=== PATIENT | female | born 1945 | race Caucasian/White ===

== ENCOUNTER 2019-03-30 05:49 | Outpatient (CLI) | payer MEDICARE ==
[~2019-03-30] VITALS: Ht 157.5 cm; Wt 68.0 kg
[2019-03-30] MEDS ORDERED: MV-M1TAB57 PO (16:43)
[2019-03-30] MEDS ORDERED: OMEP20CA12 PO (16:43)
[2019-03-30] MEDS ORDERED: OXYB5TAB9 PO (16:43)
[2019-03-30] MEDS ORDERED: CALC-654 PO (16:43)
[2019-03-30] MEDS ORDERED: SPIR50TA4 PO (16:43)
[2019-03-30] MEDS ORDERED: OMEG100032 PO (16:43)
[2019-03-30] MEDS ORDERED: SIMV20TA3 PO (16:43)
== END 2019-03-30 16:46 | disposition home or self-care (01) ==
LOC: PREOP 05:49
PROVIDERS: ATTEND Specialist
DX: Z01.818 Encounter for other preprocedural examination (principal)

== ENCOUNTER 2019-04-01 10:43 | Day surgery (SDC) | payer MEDICARE ==
[~2019-04-01] VITALS: Ht 157.5 cm; Wt 68.0 kg
[~2019-04-01 10:43] MED LIST: CALC-654 PO; MV-M1TAB57 PO; OMEG100032 PO; OMEP20CA12 PO; OXYB5TAB9 PO; SIMV20TA3 PO; SPIR50TA4 PO
[2019-04-01] MEDS ORDERED: POVIDONE (BETADINE) OPHTH SOLN 5% 30 ML OP ONE (10:45)
[2019-04-01] MEDS ORDERED: TIMOLOL MALEATE 0.5% 5 ML (TIMOPTIC) BTL OU PRN (10:45)
[2019-04-01] MEDS ORDERED: LIDOCAINE PF 1% 2 ML AMP IR PRN (10:45)
[2019-04-01] MEDS ORDERED: MOXIFLOXACIN OPHTH SOLN 5 MG/ML 0.3 ML SYRINGE OP ONE (10:45)
[2019-04-01 10:48] VITALS: BP 116/95
--- NOTE | 2019-04-01 10:48 | Ophthalmologist Pre-Op Note ---
Pre-Operative Progress Note H&P Reviewed The H&P was reviewed, patient examined and no changes noted. Date H&P Reviewed: Apr 01, 2019 Time H&P Reviewed: 10:48 Pre-Op Dx Cataract, Right Eye ASHOK VALDIVIA MD Apr 01, 2019 10:48
[2019-04-01] MEDS: TETRACAINE 0.5% OPHTH SOLN 4 ML BTL (SINGLE DOSE ONLY) OU PRN ×4 (11:02→11:32)
[2019-04-01] MEDS: PHENYLEPHRINE 10% OPHTH (NEO-SYN) 5 ML BTL OU SCH ×3 (11:14→11:32)
[2019-04-01] MEDS: CYCLOPENTOLATE 1% (CYCLOGYL) 2 ML DROPS OP SCH ×3 (11:15→11:32)
[2019-04-01] MEDS ORDERED: MIDAZOLAM 2 MG/2 ML (VERSED) VIAL ONE (11:29)
[2019-04-01] MEDS ORDERED: DEXAMETHASONE 10 MG/ML (DECADRON) 1 ML VIAL ONE (11:39)
--- NOTE | 2019-04-01 11:56 | Ophthalmology Operative Report ---
Cataract removal/placement IOL PREOPERATIVE DIAGNOSIS: Cataract Right Eye POSTOPERATIVE DIAGNOSIS: Cataract Right Eye PROCEDURE: Cataract removal and placement of posterior chamber implant, right eye SURGEON: Wayne Valdivia ANESTHESIA: Topical with sedation COMPLICATIONS: None ESTIMATED BLOOD LOSS: Minimal DESCRIPTION OF PROCEDURE: After proper informed consent was obtained, the patient, a 73 female, was taken to the Operating Room and the right eye was anesthetized with tetracaine. The right eye was then prepped and draped in the usual manner. A wire lid speculum was placed. A paracentesis was made at the left hand position. Preservative free lidocaine was injected into the anterior chamber followed by viscoelastic. A clear corneal incision was made in the temporal position. A capsulorrhexis was preformed and the central nuclear and cortical material were removed. The posterior capsule was polished and Damian 21.0 AU00T0 IOL was placed into the capsular bag. The residual viscoelastic was aspirated and balanced saline solution was injected into the anterior chamber. Moxifloxacin was injected into the anterior chamber. The wound was checked and found to be water tight. The patient tolerated the procedure well without complications. WAYNE VALDIVIA MD Apr 01, 2019 11:56
[2019-04-01] MEDS ORDERED: acetaZOLAMIDE ER 500 MG CAP (DIAMOX SEQUELS) PO ONE (12:00)
[2019-04-01 12:04] VITALS: BP 108/69
--- NOTE | 2019-04-01 12:17 | Anesthesia-General Post-Op ---
MAC Patient Condition Mental Status/LOC: Same as Preop Cardiovascular: Satisfactory Nausea/Vomiting: Absent Respiratory: Satisfactory Pain: Controlled Complications: Absent Post Op Complications Complications None Follow Up Care/Instructions Patient Instructions None needed. Anesthesiology Discharge Order Discharge Order Patient is doing well, no complaints, stable vital signs, no apparent adverse anesthesia problems. No complications reported per nursing. MEGHAN RODGERS CRNA Apr 01, 2019 12:17
== END 2019-04-01 12:04 | disposition home or self-care (01) ==
LOC: SDC 10:43
PROVIDERS: ATTEND Specialist
DX: H25.11 Age-related nuclear cataract, right eye (principal); K21.9 Gastro-esophageal reflux disease without esophagitis; Z79.899 Other long term (current) drug therapy

== ENCOUNTER 2019-06-28 05:40 | Outpatient (CLI) | payer MEDICARE ==
[~2019-06-28] VITALS: Ht 157.5 cm; Wt 68.0 kg
[~2019-06-28 05:40] MED LIST changes: -OMEP20CA12 PO; +OMEP20CA13 PO
== END 2019-06-28 14:59 | disposition home or self-care (01) ==
LOC: PREOP 05:40
PROVIDERS: ATTEND Specialist
DX: Z01.818 Encounter for other preprocedural examination (principal)

== ENCOUNTER 2019-07-01 07:51 | Day surgery (SDC) | payer MEDICARE ==
[~2019-07-01] VITALS: Ht 157.5 cm; Wt 68.0 kg
[2019-07-01] MEDS ORDERED: TROPICAMIDE 1% OPH SOLN (MYDRIACYL) 15 ML BTL OU PRN (08:00)
[2019-07-01] MEDS ORDERED: PHENYLEPHRINE 10% OPHTH (NEO-SYN) 5 ML BTL OU PRN (08:00)
[2019-07-01 08:10] VITALS: BP 129/73
[2019-07-01] MEDS: TETRACAINE 0.5% OPHTH SOLN 4 ML BTL (SINGLE DOSE ONLY) OU PRN ×4 (08:10→08:24)
--- NOTE | 2019-07-01 08:42 | Ophthalmologist Pre-Op Note ---
Pre-Operative Progress Note H&P Reviewed The H&P was reviewed, patient examined and no changes noted. Date H&P Reviewed: Jul 01, 2019 Time H&P Reviewed: 08:42 Pre-Op Dx Secondary Cataract, Right Eye ASHOK VALDIVIA MD Jul 01, 2019 08:42
[2019-07-01 08:50] VITALS: BP 129/73
--- NOTE | 2019-07-01 09:07 | Ophthalmology Operative Report ---
YAG Capsulotomy PREOPERATIVE DIAGNOSIS: Secondary Cataract Right Eye POSTOPERATIVE DIAGNOSIS: Secondary Cataract Right Eye PROCEDURE: YAG Capsulotomy, right eye SURGEON: Wayne Valdivia ANESTHESIA: Topical anesthesia COMPLICATIONS: None ESTIMATED BLOOD LOSS: Minimal DESCRIPTION OF PROCEDURE: After proper informed consent was obtained, the patient's, a 73 female, right eye received one drop of Tropicamide and one drop of Tetracaine. The patient was then placed at the YAG laser and using a power of [ 3.4] millijoules and [ 13] bursts were used to fashion a central capsulotomy. The patient tolerated the procedure well without complications. WAYNE VALDIVIA MD Jul 01, 2019 09:07
== END 2019-07-01 08:50 | disposition home or self-care (01) ==
LOC: SDC 07:51
PROVIDERS: ATTEND Specialist
DX: H26.491 Other secondary cataract, right eye (principal); M19.90 Unspecified osteoarthritis, unspecified site; K21.9 Gastro-esophageal reflux disease without esophagitis; D69.6 Thrombocytopenia, unspecified; Z88.8 Allergy status to other drugs, medicaments and biological substances; Z79.899 Other long term (current) drug therapy; Z83.518 Family history of other specified eye disorder; Z82.49 Family history of ischemic heart disease and other diseases of the circulatory system

== ENCOUNTER 2019-07-27 05:42 | Outpatient (CLI) | payer MEDICARE ==
[2019-07-27] MEDS ORDERED: OMG1KC PO (12:23)
[2019-07-27] MEDS ORDERED: OMEP20TA7 PO (12:23)
[2019-07-27] MEDS ORDERED: CALC-654 PO (12:23)
[2019-07-27] MEDS ORDERED: MV-M1TAB57 PO (12:23)
[2019-07-27] MEDS ORDERED: SIMV20TA3 PO (12:23)
[2019-07-27] MEDS ORDERED: OXYB5TAB9 PO (12:23)
== END 2019-07-27 12:21 | disposition home or self-care (01) ==
LOC: PREOP 05:42
PROVIDERS: ATTEND Specialist
DX: Z01.818 Encounter for other preprocedural examination (principal)

== ENCOUNTER 2019-07-29 08:25 | Day surgery (SDC) | payer MEDICARE ==
[~2019-07-29] VITALS: Ht 157 cm; Wt 70.4 kg
[2019-07-29 08:22] VITALS: BP 137/74
[~2019-07-29 08:25] MED LIST changes: +OMEP20TA7 PO; +OMG1KC PO
[2019-07-29] MEDS: TETRACAINE 0.5% OPHTH SOLN 4 ML BTL (SINGLE DOSE ONLY) OU PRN ×4 (08:44→09:12)
[2019-07-29] MEDS ORDERED: POVIDONE (BETADINE) OPHTH SOLN 5% 30 ML OP ONE (08:45)
[2019-07-29] MEDS ORDERED: LIDOCAINE PF 1% 2 ML AMP IR PRN (08:45)
[2019-07-29] MEDS ORDERED: MOXIFLOXACIN OPHTH SOLN 5 MG/ML 0.3 ML SYRINGE OP ONE (08:45)
[2019-07-29] MEDS ORDERED: TIMOLOL MALEATE 0.5% 5 ML (TIMOPTIC) BTL OU PRN (08:45)
[2019-07-29] MEDS: PHENYLEPHRINE 10% OPHTH (NEO-SYN) 5 ML BTL OU SCH ×3 (08:55→09:12)
[2019-07-29] MEDS: CYCLOPENTOLATE 1% (CYCLOGYL) 2 ML DROPS OP SCH ×3 (08:55→09:12)
--- NOTE | 2019-07-29 09:24 | Ophthalmologist Pre-Op Note ---
Pre-Operative Progress Note H&P Reviewed The H&P was reviewed, patient examined and no changes noted. Date H&P Reviewed: Jul 29, 2019 Time H&P Reviewed: 09:24 Pre-Op Dx Secondary Cataract, Right Eye ASHOK VALDIVIA MD Jul 29, 2019 09:24
[2019-07-29] MEDS ORDERED: MIDAZOLAM 2 MG/2 ML (VERSED) VIAL ONE (09:32)
--- NOTE | 2019-07-29 09:54 | Ophthalmology Operative Report ---
Cataract removal/placement IOL PREOPERATIVE DIAGNOSIS: Cataract Left Eye POSTOPERATIVE DIAGNOSIS: Cataract Left Eye PROCEDURE: Cataract removal and placement of posterior chamber implant, left eye SURGEON: Wayne Valdivia ANESTHESIA: Topical with sedation COMPLICATIONS: None ESTIMATED BLOOD LOSS: Minimal DESCRIPTION OF PROCEDURE: After proper informed consent was obtained, the patient, a 74 female, was taken to the Operating Room and the left eye was anesthetized with tetracaine. The left eye was then prepped and draped in the usual manner. A wire lid speculum was placed. A paracentesis was made at the left hand position. Preservative free lidocaine was injected into the anterior chamber followed by viscoelastic. A clear corneal incision was made in the temporal position. A capsulorrhexis was preformed and the central nuclear and cortical material were removed. The posterior capsule was polished and an Damian 21.0 AU00T0 was placed into the capsular bag. The residual viscoelastic was aspirated and balanced saline solution was injected into the anterior chamber. Moxifloxacin was injected into the anterior chamber. The wound was checked and found to be water tight. The patient tolerated the procedure well without complications. WAYNE VALDIVIA MD Jul 29, 2019 09:54
--- NOTE | 2019-07-29 09:55 | Ophthalmologist Pre-Op Note ---
Pre-Operative Progress Note H&P Reviewed The H&P was reviewed, patient examined and no changes noted. Date H&P Reviewed: Jul 29, 2019 Time H&P Reviewed: 09:29 Pre-Op Dx Cataract, Left Eye ASHOK VALDIVIA MD Jul 29, 2019 09:55
[2019-07-29 10:00] VITALS: BP 108/62
--- NOTE | 2019-07-29 10:12 | Anesthesia-General Post-Op ---
MAC Patient Condition Mental Status/LOC: Same as Preop Cardiovascular: Satisfactory Nausea/Vomiting: Absent Respiratory: Satisfactory Pain: Controlled Complications: Absent Post Op Complications Complications None Follow Up Care/Instructions Patient Instructions None needed. Anesthesiology Discharge Order Discharge Order Patient is doing well, no complaints, stable vital signs, no apparent adverse anesthesia problems. No complications reported per nursing. GERMÁN LONG CRNA Jul 29, 2019 10:12
[2019-07-29] MEDS ORDERED: acetaZOLAMIDE ER 500 MG CAP (DIAMOX SEQUELS) PO ONE (10:30)
== END 2019-07-29 10:00 | disposition home or self-care (01) ==
LOC: SDC 08:25
PROVIDERS: ATTEND Specialist
DX: H25.12 Age-related nuclear cataract, left eye (principal); K21.9 Gastro-esophageal reflux disease without esophagitis; Z83.518 Family history of other specified eye disorder; Z82.49 Family history of ischemic heart disease and other diseases of the circulatory system; Z79.899 Other long term (current) drug therapy; Z83.3 Family history of diabetes mellitus

== ENCOUNTER 2023-08-25 20:23 | Emergency (ER) | payer MEDICARE ==
[~2023-08-25] VITALS: Ht 157.4 cm; Wt 66.2 kg
[~2023-08-25 20:23] MED LIST changes: -OMEP20CA13 PO; +OMEP20CA18 PO; +OMEP20TA56 PO; -OMEP20TA7 PO; +OXYB5TAB13 PO; -OXYB5TAB9 PO; +SIMV20TA26 PO; -SIMV20TA3 PO
[2023-08-25] MEDS ORDERED: NS IV 1000 ML 1,000 ML IV STA (20:42)
[2023-08-25] MEDS ORDERED: ACETAMINOPHEN 500 MG TABLET PO STA (20:42)
[2023-08-25] MEDS ORDERED: ONDANSETRON INJECTION 4 MG/2 ML (SDV) IVP ONE (20:45)
[2023-08-25 20:54] LABS: EOSINOPHILS % (AUTO) 0 % (0-10)
[2023-08-25 20:56] LABS: BASOPHILS % (AUTO) 0 % (0-10); HEMATOCRIT 39 % (35-52); HEMOGLOBIN 12.5 g/dL (11.5-16.0); LYMPHOCYTES # (AUTO) 0.4 10^3/uL (1.0-4.0); LYMPHOCYTES % (AUTO) 10 % (12-44); MEAN CORPUSCULAR HEMOGLOBIN 25 pg (25-34); MEAN CORPUSCULAR HGB CONC 32 g/dL (32-36); MEAN CORPUSCULAR VOLUME 79 fL (80-99); MEAN PLATELET VOLUME 10.8 fL (9.0-12.2); MONOCYTES # (AUTO) 0.1 10^3/uL (0.0-1.0); MONOCYTES % (AUTO) 1 % (0-12); NEUTROPHILS # (AUTO) 3.8 10^3/uL (1.8-7.8); NEUTROPHILS % (AUTO) 88 % (42-75); PLATELET COUNT 88 10^3/uL (130-400); WHITE BLOOD COUNT 4.3 10^3/uL (4.3-11.0)
--- NOTE | 2023-08-25 21:04 | ED General ---
General Chief Complaint: Allergic Reaction Stated Complaint: POSS ALLERGIC REACTION TO SHOTS Nursing Triage Note: PT AMB TO RM 6 WITH CC OF ALLERGIC REACTION FROM THE FLU SHOT AND TDAP THAT SHE RECIEVED FROM [facility] AT 4PM TODAY. PT STATES THAT SHE STARTED TO DEVELOP N/V, KING, BODY ACHES, AND DRY MOUTH AN HOUR AGO. Source of Information: Patient Exam Limitations: No Limitations History of Present Illness Date Seen by Provider: Aug 25, 2023 Time Seen by Provider: 20:37 Initial Comments Here with report of nausea, vomiting, headache, body aches, dry mouth and just overall not feeling well after getting flu shot and Tdap shot today at about 4 PM at [facility]. Patient states that she has never had reactions to flu shots before or the tetanus shot. Fever noted here and she does have chills and overall just feels terrible. She believes that she is having an allergic reaction. No difficulty breathing and no reported diarrhea or chest pain. Has not been ill recently and has no upper respiratory symptoms. She did take her indomethacin 25 mg tablet as well as 1 Tylenol tablet about an hour ago for the symptoms. That has not helped. Timing/Duration: 1-3 Hours Severity: Moderate Modifying Factors: improves with Rest Associated Systoms: No Cough; Nausea/Vomiting; No Shortness of Air Allergies and Home Medications Allergies Coded Allergies: iodine (Verified Allergy, Unknown, Rash, 03/30/19) Patient Home Medication List Home Medication List Reviewed: Yes Calcium Carbonate/Vitamin D3 (Calcium 500 + D Tablet) 1 Each Tablet, 1 EACH PO DAILY, (Reported) Entered as Reported by: RICKEY HELMS on 07/27/19 1223 Mv-Mn/Folic Acid/Calcium/Vit K (Women's 50 Plus Multivit Tab) 1 Each Tablet, 1 EACH PO DAILY, (Reported) Entered as Reported by: RICKEY HELMS on 07/27/19 1223 [place] 3 Polyunsat Fatty Acids (Fish Oil 1,000 mg Capsule) 1,000 Mg Cap, 1,000 MG PO DAILY, (Reported) Entered as Reported by: RICKEY HELMS on 07/27/19 1223 Omeprazole (Omeprazole) 20 Mg Tablet.dr, 20 MG PO DAILY, (Reported) Entered as Reported by: RICKEY HELMS on 07/27/19 1223 Oxybutynin Chloride (Oxybutynin Chloride) 5 Mg Tablet, 5 MG PO DAILY, (Reported) Entered as Reported by: RICKEY HELMS on 07/27/19 1223 Simvastatin (Simvastatin) 20 Mg Tablet, 20 MG PO DAILY, (Reported) Entered as Reported by: RICKEY HELMS on 07/27/19 1223 Review of Systems Review of Systems Constitutional: see HPI, chills, weakness EENTM: No nose congestion, No throat pain Respiratory: No cough, No short of breath Cardiovascular: No chest pain Gastrointestinal: nausea; No vomiting; other (Dry mouth) Genitourinary: no symptoms reported Musculoskeletal: muscle pain Psychiatric/Neurological: See HPI, Anxiety Past Eieqrvw-Baruha-Ioojcv Hx Patient Social History Tobacco Use?: No Substance use?: No Alcohol Use?: No Past Medical History Surgeries: Yes Orthopedic Respiratory: No Cardiac: Yes High Cholesterol Neurological: No Genitourinary: No Gastrointestinal: No Musculoskeletal: Yes (Tendinitis and carpal tunnel) Family Medical History No Pertinent Family Hx Physical Exam Vital Signs Vital Signs - First Documented 08/25/23 20:32 Temp 38.6 Pulse 92 B/P (MAP) 114/98 (103) Pulse Ox 98 O2 Delivery Room Air Capillary Refill : Height, Weight, BMI Height: 5'2.00" Weight: 150lbs. 0.0oz. [id number]; 26.00 BMI Method: General Appearance: WD/WN, Anxious HEENT: PERRL/EOMI, Pharynx Normal, Other (Mucous membranes dry) Neck: Non Tender, Supple Respiratory: Lungs Clear, Normal Breath Sounds Cardiovascular: No Murmur, Tachycardia (90s) Gastrointestinal: Non Tender, Soft Back: Normal Inspection, No CVA Tenderness, No Vertebral Tenderness Extremity: Normal Range of Motion, Non Tender Neurologic/Psychiatric: Alert, Oriented x3 Skin: Warm/Dry, Other (Does have some shaking chills) Progress/Results/Core Measures Suspected Sepsis SIRS Temperature: Pulse: 92 Respiratory Rate: Laboratory Tests 08/25/23 20:47: White Blood Count 4.3 Blood Pressure 114 /98 Mean: 103 Laboratory Tests 08/25/23 20:47: Creatinine 0.86, Platelet Count 88L, Total Bilirubin 0.4 Results/Orders Lab Results Laboratory Tests Test 08/25/23 20:47 08/25/23 22:12 Range/Units White Blood Count 4.3 4.3-11.0 10^3/uL Red Blood Count 5.02 3.80-5.11 10^6/uL Hemoglobin 12.5 11.5-16.0 g/dL Hematocrit 39 35-52 % Mean Corpuscular Volume 79 L 80-99 fL Mean Corpuscular Hemoglobin 25 25-34 pg Mean Corpuscular Hemoglobin Concent 32 32-36 g/dL Red Cell Distribution Width 13.4 10.0-14.5 % Platelet Count 88 L 130-400 10^3/uL Mean Platelet Volume 10.8 9.0-12.2 fL Immature Granulocyte % (Auto) 1 % Neutrophils (%) (Auto) 88 H 42-75 % Lymphocytes (%) (Auto) 10 L 12-44 % Monocytes (%) (Auto) 1 0-12 % Eosinophils (%) (Auto) 0 0-10 % Basophils (%) (Auto) 0 0-10 % Neutrophils # (Auto) 3.8 1.8-7.8 10^3/uL Lymphocytes # (Auto) 0.4 L 1.0-4.0 10^3/uL Monocytes # (Auto) 0.1 0.0-1.0 10^3/uL Eosinophils # (Auto) 0.0 0.0-0.3 10^3/uL Basophils # (Auto) 0.0 0.0-0.1 10^3/uL Immature Granulocyte # (Auto) 0.0 0.0-0.1 10^3/uL Neutrophils % (Manual) 72 % Lymphocytes % (Manual) 8 % Basophils % (Manual) 1 % Band Neutrophils 19 % Platelet Estimate DECREASED Clumped Platelets NONE SEEN Percent Immature Platelet Fraction 3.4 0.0-7.6 % Poikilocytosis SLIGHT Sodium Level 142 135-145 MMOL/L Potassium Level 3.5 L 3.6-5.0 MMOL/L Chloride Level 104 98-107 MMOL/L Carbon Dioxide Level 24 21-32 MMOL/L Anion Gap 14 5-14 MMOL/L Blood Urea Nitrogen 14 7-18 MG/DL Creatinine 0.86 0.60-1.30 MG/DL Estimat Glomerular Filtration Rate 69 BUN/Creatinine Ratio 16 Glucose Level 85 70-105 MG/DL Calcium Level 9.8 8.5-10.1 MG/DL Corrected Calcium 9.6 8.5-10.1 MG/DL Total Bilirubin 0.4 0.1-1.0 MG/DL Aspartate Amino Transf (AST/SGOT) 21 5-34 U/L Alanine Aminotransferase (ALT/SGPT) 16 0-55 U/L Alkaline Phosphatase 77 40-136 U/L C-Reactive Protein High Sensitivity 0.18 0.00-0.50 MG/DL Total Protein 6.9 6.4-8.2 GM/DL Albumin 4.3 3.2-4.5 GM/DL Influenza Type A (RT-PCR) Not Detected Not Detecte Influenza Type B (RT-PCR) Not Detected Not Detecte SARS-CoV-2 RNA (RT-PCR) Not Detected Not Detecte My Orders Orders - CHELSEY CAIN MD Cbc And Automated Diff (08/25/23 20:42) Comprehensive Metabolic Panel (08/25/23 20:42) Hs C Reactive Protein (08/25/23 20:42) Ondansetron Injection (Ondansetron Inj (08/25/23 20:45) Ns Iv 1000 Ml (Ns Iv 1000 Ml) (08/25/23 20:42) Ed Iv/Invasive Line Start (08/25/23 20:42) Acetaminophen Tablet (Acetaminophen Ta (08/25/23 20:42) Manual Differential (08/25/23 20:47) Influenza A And B By Pcr (08/25/23 21:45) Covid 19 Inhouse Test (08/25/23 21:45) Medications Given in ED Current Medications Medications Dose Ordered Sig/Haley Route Start Time Stop Time Status Last Admin Dose Admin Ondansetron HCl 4 mg ONCE ONCE IVP 08/25/23 20:45 08/25/23 20:46 DC 08/25/23 20:53 4 MG Vital Signs/I&O 08/25/23 08/25/23 20:32 22:32 Temp 38.6 38.6 Pulse 92 81 B/P (MAP) 114/98 (103) 111/56 Pulse Ox 98 93 O2 Delivery Room Air Room Air Capillary Refill : Blood Pressure Mean: 103 Progress Note : Progress Note Seen and evaluated. IV, normal saline 1 L bolus, Zofran 4 mg IV, Tylenol 500 mg p.o. ordered. We will get labs and check CBC, CMP and CRP. Monitor patient. Differential diagnosis includes electrolyte abnormality, dehydration, vaccine reaction Patient did have fever on arrival. She still has temp of 39 1. We will go ahead and check influenza and COVID test and patient has asked for and agrees to that and states she would feel more comfortable knowing. Overall she is feeling much better now. Chemistries reviewed and no significant abnormality. CRP is negative. CBC does not show any significant abnormality. Monitor patient. 2217: Patient is feeling better. COVID and influenza are pending and she would like to go home if possible and I can call her with results. I do have her number and I am certainly okay doing that as it will not [employer] even if she is positive or we can establish outpatient management as needed. She is tolerating p.o. fluids. Discharged home with return precautions. Patient verbalized understanding of instructions and agreement with plan. 2320: COVID and flu are negative and patient was called by me and results were given. She is still doing better at home. She will continue with plan as addressed in discharge instructions. Departure Impression Primary Impression: Adverse reaction to influenza vaccine Qualified Codes: T50.B95A - Adverse effect of other viral vaccines, initial encounter Disposition: HOME, SELF-CARE Condition: Improved Departure-Patient Inst. Decision time for Depature: 22:18 Referrals: BRIELLE JACQUES DO (PCP/Family) Primary Care Physician Patient Instructions: Adverse Drug Reactions, Adult (DC) Add. Discharge Instructions: All discharge instructions reviewed with patient and/or family. Voiced understanding. It is not uncommon that you can have illness symptoms including fever, body aches and headache to influenza vaccine. This is usually short-lived and can be treated with [id number] Tylenol and with your indomethacin. You may continue your indomethacin as prescribed. You may take [id number] Tylenol/acetaminophen 1000 mg every 6-8 hours as needed for pain or fevers. Drink plenty of fluids and get plenty of rest. These reactions will usually resolve within 24 to 36 hours. You do have COVID and influenza testing pending and we will call you with the results when those are available tonight. Follow- up with your doctor for recheck and further evaluation. Return for weakness, breathing problems, vomiting, worse pain or other concerns as needed. Copy Copies To 1: BRIELLE JACQUES TIMOTHY D MD Aug 25, 2023 21:04
[2023-08-25 21:21] LABS: ALBUMIN 4.3 GM/DL (3.2-4.5); BILIRUBIN,TOTAL 0.4 MG/DL (0.1-1.0); CALCIUM 9.8 MG/DL (8.5-10.1); CREATININE SERUM 0.86 MG/DL (0.60-1.30); POTASSIUM 3.5 MMOL/L (3.6-5.0); TOTAL PROTEIN 6.9 GM/DL (6.4-8.2)
[2023-08-25 21:53] LABS: BAND NEUTROPHILS 19 %; BASOPHILS % (MANUAL) 1 %; LYMPHOCYTES % (MANUAL) 8 %; NEUTROPHILS % (MANUAL) 72 %; PLATELET CLUMPS NONE SEEN; PLATELET ESTIMATE DECREASED; POIKILOCYTOSIS SLIGHT
[2023-08-25 22:32] VITALS: BP 111/56
== END 2023-08-25 22:37 | disposition home or self-care (01) ==
LOC: EDUNIT# 20:23 → ER 20:26
DX: R11.2 Nausea with vomiting, unspecified (principal); T50.B95A Adverse effect of other viral vaccines, initial encounter
CPT/HCPCS: 36415; 80053; 85007; 85027; 86141; 87636; 96361; 96374